=== PATIENT | male | born 1955 | race Caucasian/White ===

== ENCOUNTER 2024-05-02 13:40 | Emergency (ER) | payer MEDICARE ==
[~2024-05-02] VITALS: Ht 177.8 cm; Wt 81.7 kg
[2024-05-02] MEDS ORDERED: Ketorolac Tromethamine 30mg Vial IM ONE (15:30)
[2024-05-02] MEDS ORDERED: Cyclobenzaprine HCl 10 MG Tab PO ONE (15:30)
[2024-05-02] MEDS ORDERED: Norco 5-325 Ta1 EACH PO (15:39)
[2024-05-02] MEDS ORDERED: CYCL10 PO (15:39)
== END 2024-05-02 15:59 | disposition home or self-care (01) ==
LOC: ER 13:40
DX: M54.50 Low back pain, unspecified (principal); Z88.5 Allergy status to narcotic agent
CPT/HCPCS: 73502; 96372; 99283-25; A9270; J1885